=== PATIENT | female | born 1975 | race Caucasian/White ===

== ENCOUNTER 2016-07-12 22:00 | Emergency (ER) | payer OTHER ==
--- NOTE | 2016-07-12 22:31 | EDM.PDOC ---
ED HPI GENERAL MEDICAL PROBLEM - General Chief Complaint: General Stated Complaint: RASH,FEVER,NOT FEELING WELL Time Seen by Provider: 07/12/16 22:20 - History of Present Illness INITIAL COMMENTS - FREE TEXT/NARRATIVE: 41-year-old female presents emergency room with facial swelling and not feeling well. Patient was seen in the walk in clinic yesterday for urinary tract infection symptoms. She was started on Bactrim. Her urinary tract infection symptoms are much better at this point however she awoke this morning and noticed some facial swelling and redness. She also awoke with a headache. This is not described as a thunder clap headache. She does not feel that the headache woke her up but she did wake up with a headache it is not the most severe headache that she has had however it has remained all day. Patient does not have a history of recurrent headaches. Past medical history is unremarkable Lower Back Pain Score (Numeric/FACES): 3 - Related Data Allergies Allergy/AdvReac Type Severity Reaction Status Date / Time No Known Allergies Allergy Verified 07/12/16 22:20 Home Meds: Home Meds Ciprofloxacin HCl [Cipro] 500 mg PO BID 07/12/16 [History] ED ROS GENERAL - Review of Systems Review Of Systems: See Below Constitutional: Reports: Fever. Denies: Chills, Malaise, Weakness, Fatigue HEENT: Reports: No Symptoms Respiratory: Reports: No Symptoms Cardiovascular: Reports: No Symptoms GI/Abdominal: Reports: Vomiting (Patient did vomit one time today) : Reports: Other (Yesterday started on treatment for UTI her symptoms are much better at this point) Musculoskeletal: Reports: Neck Pain (Mild) Neurological: Reports: Headache. Denies: No Symptoms, Confusion, Dizziness, Pre -Existing Deficit, Seizure, Trouble Speaking, Difficulty Walking, Weakness, Gait Disturbance Psychiatric: Reports: No Symptoms ED EXAM, GENERAL - Physical Exam Exam: See Below Exam Limited By: No Limitations General Appearance: Alert, No Apparent Distress Eye Exam: Bilateral Eye: EOMI, Normal Inspection, PERRL Ears: Normal External Exam, Normal Canal, Hearing Grossly Normal, Normal TMs Nose: Normal Inspection, Normal Mucosa, No Blood Throat/Mouth: Normal Inspection, Normal Lips, Normal Teeth, Normal Gums, Normal Oropharynx, Normal Voice, No Airway Compromise Head: Atraumatic, Normocephalic Neck: Normal Inspection, Supple, Non-Tender, Full Range of Motion, Other (No rigidity the patient can sit with her legs straight and fully flex her neck without difficulty or aggravation of her headache). No: Lymphadenopathy (L), Lymphadenopathy (R) Respiratory/Chest: No Respiratory Distress, Lungs Clear, Normal Breath Sounds Cardiovascular: Regular Rate, Rhythm, No Edema, No Murmur GI/Abdominal: Normal Bowel Sounds, Soft, Non-Tender Back Exam: Normal Inspection. No: CVA Tenderness (L), CVA Tenderness (R) Extremities: Normal Inspection, Normal Range of Motion, No Pedal Edema Neurological: Alert, Oriented, Other (Cranial nerves II through XII grossly intact all muscle groups the upper and lower extremities recall appropriate bilaterally deep tendon reflexes the brachial radialis and patella tendons are equal and appropriate bilaterally cerebellar testing is entirely within normal limits. She has no nuchal rigidity. Manipulation of her neck does not cause any discomfort). No: Memory Loss Remote Events, Memory Loss Recent Events, Abnormal Gait, Abnormal Reflexes Course - Vital Signs Last Recorded V/S: Last Vital Signs Temp 38.0 C 07/13/16 03:42 Pulse 78 07/13/16 03:42 Resp 20 07/13/16 03:42 BP 106/79 07/13/16 03:42 Pulse Ox 97 07/13/16 03:42 - Orders/Labs/Meds Orders: Active Orders 24 hr Category Date Time Status Flat in Bed [RC] ASDIRECTED Care 07/13/16 03:26 Active Procedure Tray at Bedside [RC] ASDIRECTED Care 07/13/16 03:26 Active Verify Patient Consent Obtain [RC] ASDIRECTED Care 07/13/16 03:26 Active Head wo Cont [CT] Stat Exams 07/13/16 01:24 Taken CELL COUNT,CSF [BF] Urgent Lab 07/13/16 04:00 Received CULTURE CSF + SMEAR [RM] Urgent Lab 07/13/16 04:00 Results HOLD CSF IN LAB TUBE 1 [BF] Urgent Lab 07/13/16 04:00 Received HOLD CSF IN LAB TUBE 2 [BF] Urgent Lab 07/13/16 04:00 Received ED Lumbar Puncture Reflex [OM.PC] Click To Edit Oth 07/13/16 03:26 Ordered Labs: Laboratory Tests 07/12/16 07/12/16 07/13/16 Range/Units 22:55 22:55 04:00 WBC 6.87 (3.98-10.04) K/mm3 RBC 4.09 (3.98-5.22) M/mm3 Hgb 11.9 (11.2-15.7) gm/L Hct 34.6 (34.1-44.9) % MCV 84.6 (79.4-94.8) fl MCH 29.1 (25.6-32.2) pg MCHC 34.4 (32.2-35.5) g/dl RDW Std Deviation 38.6 (36.4-46.3) fL Plt Count 148 L (182-369) K/mm3 MPV 9.7 (9.4-12.3) fl Neutrophils % (Manual) 88 H (40-60) % Band Neutrophils % 0 (0-10) % Lymphocytes % (Manual) 4 L (20-40) % Atypical Lymphs % 0 % Monocytes % (Manual) 6 (2-10) % Eosinophils % (Manual) 2 (0.7-5.8) % Basophils % (Manual) 0 L (0.1-1.2) Platelet Estimate Adequate Poikilocytosis 1+ slight Ovalocytes 1+ slight Sodium 130 L (136-145) mEq/L Potassium 3.5 (3.5-5.1) mEq/L Chloride 97 L (98-107) mEq/L Carbon Dioxide 22 (21-32) mEq/L Anion Gap 14.5 (5-15) BUN 8 (7-18) mg/dL Creatinine 1.0 (0.55-1.02) mg/dL Est Cr Clr Drug Dosing 59.49 mL/min Estimated GFR (MDRD) > 60 (>60) mL/min BUN/Creatinine Ratio 8.0 L (14-18) Glucose 137 H (74-106) mg/dL Calcium 8.3 L (8.5-10.1) mg/dL Total Bilirubin 0.5 (0.2-1.0) mg/dL AST 16 (15-37) U/L ALT 23 (14-59) U/L Alkaline Phosphatase 68 (46-116) U/L C-Reactive Protein 9.0 H* (<1.0) mg/dL Total Protein 7.4 (6.4-8.2) g/dl Albumin 3.5 (3.4-5.0) g/dl Globulin 3.9 gm/dL Albumin/Globulin Ratio 0.9 L (1-2) CSF Glucose 61.0 (40-70) mg/dl CSF Total Protein 23.5 (15-45) mg/dl Meds: Medications Discontinued Medications Generic Name Dose Route Start Last Admin Trade Name Ty PRN Reason Stop Dose Admin Diphenhydramine HCl 50 mg 07/12/16 22:37 07/12/16 22:55 Benadryl IVPUSH 07/12/16 22:38 50 mg ONETIME ONE Administration Haloperidol Lactate 5 mg 07/13/16 02:30 07/13/16 02:36 Haldol IVPUSH 07/13/16 02:31 5 mg ONETIME ONE Administration Lactated Ringer's 1,000 mls @ 999 mls/hr 07/12/16 22:37 07/12/16 22:54 Ringers, Lactated IV 07/12/16 23:37 999 mls/hr .BOLUS ONE Administration Ondansetron HCl 4 mg 07/12/16 22:37 07/12/16 22:54 Zofran IVPUSH 07/12/16 22:38 4 mg ONETIME ONE Administration - Re-Assessments/Exams Free Text/Narrative Re-Assessment/Exam: 07/12/16 22:58 Discussed treatment and my concerns about the possibility of a meningitis with this headache and this recent fever offered CT scanning. She would like to wait until after labs and to see how she responds to therapy for her headache. She be given LR Zofran and Benadryl. 07/13/16 01:10 Initially the patient had close to 50% improvement with her headache but headache started worsen little bit and then stabilized at about a 20% improvement the patient thinks he can go home and rest however I still have no good explanation for her fever with improving urinary tract infection symptoms can't really blame it on that I am concerned about the possibility of meningitis and discussed with the patient and family early in the patient's care and have said the best way to exclude this as LP following CT exam of the head. Her white count is not elevated, segs are slightly elevated with no bandemia. C-reactive protein is elevated, albeit, this could be do to UTI or other causes. But nothing in the lab work can't exclude an early meningitis. She has thought about this multiple times and is favoring going home and trying to sleep this off which she think she can do however would like more time to think about this. We discussed the risk of CT the LP and certainly the benefits and certainly the best way to exclude the possibility of meningitis is LP. 07/13/16 01:27 Patient agrees to a head CT at this time she is still thinking about LP. 07/13/16 02:[address] is negative she is still contemplating the pros and cons of the LP and has not consented to it at this point. 07/13/16 03:02 About 20 minutes with the patient received 5 mg of IV Haldol her pain is down to about a 7. At this time she consents to LP. 07/13/16 04:41 LP was done without difficulty glucose was 61 protein 23.5 normal ranges 07/13/16 05:45 Cell count rare WBCs no bacteria seen. Patient think she can go and sleep this off she will be discharged Departure - Departure Time of Disposition: 05:46 Disposition: Home, Self-Care 01 Clinical Impression: Headache, Fever - Discharge Information Additional Instructions: Return to emergency room with any questions or problems, worsening symptoms, or other concerns. Push lots of fluids. Continue your Cipro. - My Orders Last 24 Hours: My Active Orders 07/13/16 01:24 Head wo Cont [CT] Stat 07/13/16 03:26 Flat in Bed [RC] ASDIRECTED Procedure Tray at Bedside [RC] ASDIRECTED Verify Patient Consent Obtain [RC] ASDIRECTED ED Lumbar Puncture Reflex [OM.PC] Click To Edit 07/13/16 04:00 CELL COUNT,CSF [BF] Urgent CULTURE CSF + SMEAR [RM] Urgent HOLD CSF IN LAB TUBE 1 [BF] Urgent HOLD CSF IN LAB TUBE 2 [BF] Urgent - Assessment/Plan Last 24 Hours: My Active Orders 07/13/16 01:24 Head wo Cont [CT] Stat 07/13/16 03:26 Flat in Bed [RC] ASDIRECTED Procedure Tray at Bedside [RC] ASDIRECTED Verify Patient Consent Obtain [RC] ASDIRECTED ED Lumbar Puncture Reflex [OM.PC] Click To Edit 07/13/16 04:00 CELL COUNT,CSF [BF] Urgent CULTURE CSF + SMEAR [RM] Urgent HOLD CSF IN LAB TUBE 1 [BF] Urgent HOLD CSF IN LAB TUBE 2 [BF] Urgent
[2016-07-12] MEDS ORDERED: Ondansetron 4 MG/2 ML SDV IVPUSH ONE (22:37)
[2016-07-12] MEDS ORDERED: Lactated Ringers 1,000 ML IV ONE (22:37)
[2016-07-12] MEDS ORDERED: diphenhydrAMINE 50 MG/ML SDV IVPUSH ONE (22:37)
[2016-07-13] MEDS ORDERED: Haloperidol Lactate 5 MG/ML SDV IVPUSH ONE (02:30)
[2016-07-13 03:41] VITALS: BP 106/79
--- NOTE | 2016-07-13 03:41 | PCM.PREANE ---
Preanesthetic Assessment - Anesthesia/Transfusion/Family Hx Anesthesia History: Prior Anesthesia Without Reaction Family History of Anesthesia Reaction: No Transfusion History: No Prior Transfusion(s) - Review of Systems General: Malaise Pulmonary: No Symptoms Cardiovascular: No Symptoms Gastrointestinal: No symptoms Neurological: Headache Other: Reports: None - Physical Assessment NPO Status Date: 07/12/16 NPO Status Time: 22:30 Pulse: 78 O2 Sat by Pulse Oximetry: 97 Respiratory Rate: 20 Blood Pressure: 106/79 Temperature: 38.0 C Vital Signs: Last Vital Signs Temp 38.0 C 07/13/16 01:30 Pulse 81 07/12/16 22:12 Resp 20 07/12/16 22:12 BP 106/66 07/12/16 22:12 Pulse Ox 97 07/12/16 22:12 Height: 1.57 m Weight: 49.895 kg ASA Class: 1E Mental Status: Alert & Oriented x3 Airway Class: Mallampati = 1 Dentition: Reports: Normal Dentition Thyro-Mental Finger Breadths: 3 Mouth Opening Finger Breadths: 3 ROM/Head Extension: Full Lungs: Clear to auscultation, Normal respiratory effort Cardiovascular: Regular Rate, Regular Rhythm, No Murmurs - Lab Values: Laboratory Last Values WBC 6.87 K/mm3 (3.98-10.04) 07/12/16 22:55 RBC 4.09 M/mm3 (3.98-5.22) 07/12/16 22:55 Hgb 11.9 gm/L (11.2-15.7) 07/12/16 22:55 Hct 34.6 % (34.1-44.9) 07/12/16 22:55 MCV 84.6 fl (79.4-94.8) 07/12/16 22:55 MCH 29.1 pg (25.6-32.2) 07/12/16 22:55 MCHC 34.4 g/dl (32.2-35.5) 07/12/16 22:55 RDW Std Deviation 38.6 fL (36.4-46.3) 07/12/16 22:55 Plt Count 148 K/mm3 (182-369) L 07/12/16 22:55 MPV 9.7 fl (9.4-12.3) 07/12/16 22:55 Neutrophils % (Manual) 88 % (40-60) H 07/12/16 22:55 Band Neutrophils % 0 % (0-10) 07/12/16 22:55 Lymphocytes % (Manual) 4 % (20-40) L 07/12/16 22:55 Atypical Lymphs % 0 % 07/12/16 22:55 Monocytes % (Manual) 6 % (2-10) 07/12/16 22:55 Eosinophils % (Manual) 2 % (0.7-5.8) 07/12/16 22:55 Basophils % (Manual) 0 (0.1-1.2) L 07/12/16 22:55 Platelet Estimate Adequate 07/12/16 22:55 Poikilocytosis 1+ slight 07/12/16 22:55 Ovalocytes 1+ slight 07/12/16 22:55 Sodium 130 mEq/L (136-145) L 07/12/16 22:55 Potassium 3.5 mEq/L (3.5-5.1) 07/12/16 22:55 Chloride 97 mEq/L (98-107) L 07/12/16 22:55 Carbon Dioxide 22 mEq/L (21-32) 07/12/16 22:55 Anion Gap 14.5 (5-15) 07/12/16 22:55 BUN 8 mg/dL (7-18) 07/12/16 22:55 Creatinine 1.0 mg/dL (0.55-1.02) 07/12/16 22:55 Est Cr Clr Drug Dosing 59.49 mL/min 07/12/16 22:55 Estimated GFR (MDRD) > 60 mL/min (>60) 07/12/16 22:55 BUN/Creatinine Ratio 8.0 (14-18) L 07/12/16 22:55 Glucose 137 mg/dL (74-106) H 07/12/16 22:55 Calcium 8.3 mg/dL (8.5-10.1) L 07/12/16 22:55 Total Bilirubin 0.5 mg/dL (0.2-1.0) 07/12/16 22:55 AST 16 U/L (15-37) 07/12/16 22:55 ALT 23 U/L (14-59) 07/12/16 22:55 Alkaline Phosphatase 68 U/L (46-116) 07/12/16 22:55 C-Reactive Protein 9.0 mg/dL (<1.0) H* 07/12/16 22:55 Total Protein 7.4 g/dl (6.4-8.2) 07/12/16 22:55 Albumin 3.5 g/dl (3.4-5.0) 07/12/16 22:55 Globulin 3.9 gm/dL 07/12/16 22:55 Albumin/Globulin Ratio 0.9 (1-2) L 07/12/16 22:55 - Allergies Allergies/Adverse Reactions: Allergies Allergy/AdvReac Type Severity Reaction Status Date / Time No Known Allergies Allergy Verified 07/12/16 22:20 - Blood Blood Available: No Product(s) Available: None - Anesthesia Plan Pre-Op Medication Ordered: None - Acknowledgements Pt an Appropriate Candidate for the Planned Anesthesia: Yes Alternatives and Risks of Anesthesia Discussed w Pt/Guardian: Yes Pt/Guardian Understands and Agrees with Anesthesia Plan: Yes PreAnesthesia Questionnaire Musculoskeletal History: Reports: Other (See Below) Other Musculoskeletal History: right 5th digit fracture with surgery - SUBSTANCE USE Smoking Status *Q: Never Smoker Tobacco Use Within Last Twelve Months: No Second Hand Smoke Exposure: No Days Per Week of Alcohol Use: 0 Number of Drinks Per Day: 0 Total Drinks Per Week: 0 Recreational Drug Use History: No - HOME MEDS Home Medications: Home Meds Ciprofloxacin HCl [Cipro] 500 mg PO BID 07/12/16 [History] - CURRENT (IN HOUSE) MEDS Current Meds: Current Medications Discontinued Medications Diphenhydramine HCl (Benadryl) 50 mg IVPUSH ONETIME ONE Stop: 07/12/16 22:38 Last Admin: 07/12/16 22:55 Dose: 50 mg Haloperidol Lactate (Haldol) 5 mg IVPUSH ONETIME ONE Stop: 07/13/16 02:31 Last Admin: 07/13/16 02:36 Dose: 5 mg Lactated Ringer's (Ringers, Lactated) 1,000 mls @ 999 mls/hr IV .BOLUS ONE Stop: 07/12/16 23:37 Last Admin: 07/12/16 22:54 Dose: 999 mls/hr Ondansetron HCl (Zofran) 4 mg IVPUSH ONETIME ONE Stop: 07/12/16 22:38 Last Admin: 07/12/16 22:54 Dose: 4 mg
--- NOTE | 2016-07-13 04:18 | PCM.SN ---
- Free Text/Narrative Note: 0345 called to ER for lumbar puncture pre-op assessment complete patient at bedside leaning against bedside table. 25ga spinal needle used with introducer at L3-4 all done under sterile technique. four tubes clear CSF obtained band aid applied pt supine VSS no complains of 99/66 78 14 98%
--- NOTE | 2016-07-13 15:32 | CT ---
Head CT Technique: Multiple axial sections through the brain were obtained. Intravenous contrast was not utilized. Comparison: No previous intracranial imaging. Findings: Ventricles along with basal cisterns and sulci over the convexities appear within normal limits for the patient's age. No abnormal parenchymal densities are seen. No evidence of intracranial hemorrhage. No midline shift or mass effect is seen. No acute calvarial abnormality is seen. Visualized sinuses are clear. Impression: 1. No acute intracranial abnormality is identified on noncontrast head CT study. Diagnostic code #1 I agree with preliminary report issued by [facility] ([facility] preliminary report dictated on 07/13/16, 3:01 AM Central Time)
== END 2016-07-13 05:55 | disposition home or self-care (01) ==
LOC: JD.ED 22:00
DX: R51 Headache (principal); R50.9 Fever, unspecified
CPT/HCPCS: 36415; 70450; 80053; 82945; 84157; 85025; 86140; 86308; 86788; 86789; 87070; 87205; 89050; 96361; 96374; 96375; 99285; J1200; J1630; J2405; J7120; 62322; 99284